=== PATIENT | male | born 1965 | race Caucasian/White ===

== ENCOUNTER 2019-06-27 23:11 | Observation (INO) ==
[2019-06-27] MEDS ORDERED: GLUCAGON 1 MG VIAL IV STA (23:46)
[2019-06-28] MEDS ORDERED: ONDANSETRON 4 MG/2 ML VIAL IV PRN (00:39)
[2019-06-28] MEDS ORDERED: LACTATED RINGERS 1,000 ML IV SCH (01:00)
[2019-06-28] MEDS ORDERED: MORPHINE 4 MG/1 ML VIAL IV PRN (02:14)
[2019-06-28] MEDS ORDERED: propofoL 200 MG/20 ML VIAL IV ONE (02:15)
[2019-06-28] MEDS ORDERED: fentaNYL 100 MCG/2 ML VIAL ONE (02:15)
[2019-06-28] MEDS ORDERED: LIDOCAINE 2% 5 ML VIAL ONE (02:15)
[2019-06-28] MEDS ORDERED: SEVOFLURANE 1 UNIT/15 MINUTE INH ONE (02:15)
[2019-06-28] MEDS ORDERED: ONDANSETRON 4 MG/2 ML VIAL ONE (02:16)
[2019-06-28] MEDS ORDERED: SUCCINYLCHOLINE 200 MG/10 ML VIAL ONE (02:16)
[2019-06-28] MEDS ORDERED: PHENYLEPHRINE 1 MG/10 ML SYRINGE IV ONE (02:16)
[2019-06-28] MEDS ORDERED: DEXAMETHASONE 4 MG/1 ML VIAL ONE (02:16)
[2019-06-28] MEDS ORDERED: ROCURONIUM 100 MG/10 ML VIAL IV ONE (02:16)
[2019-06-28] MEDS ORDERED: ESMOLOL 100 MG/10 ML VIAL IV ONE (02:16)
[2019-06-28] MEDS ORDERED: ETOMIDATE 40 MG/20 ML VIAL IV ONE (02:16)
[2019-06-28 02:26] LABS: Basophils # 0.1 10*3/uL (0.0-0.2); Basophils % 0.7 % (0.0-0.8); Eosinophils # 0.3 10*3/uL (0.0-0.87); Eosinophils % 3.7 % (0.00-10.9); Hemoglobin 15.1 GM/DL (14.0-18.0); Immature Granulocytes % 0.3 %; Immature Granulocytes Absolute 0.02 #; Lymphocytes # 1.1 10*3/uL (1.4-4.0); Lymphocytes % 14.9 % (21.2-54.2); Mean Corpuscular HGB Conc 35.1 GM/DL (32-36); Mean Corpuscular Volume 93.5 FL (87-102); Mean Platelet Volume 9.4 FL (9.6-12.0); Monocytes % 5.2 % (1.7-12.7); Neutrophils % 75.2 % (38.7-73.9); Platelet Count 234 T/CUMM (130-400); Red Cell Distribution Width 11.7 % (9.3-17.3); White Blood Count 7.1 T/CUMM (4-12)
[2019-06-28 02:38] LABS: Albumin 3.7 G/DL (3.4-5.0); Bilirubin,Total 0.5 MG/DL (0.2-1.0); Calcium 9.3 MG/DL (8.5-10.1); Osmolality,Calculated 250.5 MOS/KG (273-304); Total Protein 7.4 G/DL (6.4-8.3)
[2019-06-28] MEDS ORDERED: cefTRIAXone 2,000 MG in SYRINGE 1 EACH IV SCH (03:00)
[2019-06-28] MEDS: PANTOPRAZOLE 40 MG VIAL IV SCH ×2 (03:58→10:14)
[2019-06-28 04:00] LABS: Platelet Estimate Normal
[2019-06-28 11:48] VITALS: BP 119/68
== END 2019-06-28 15:24 | disposition home or self-care (01) ==
LOC: N.5E 23:11 → N.ED 23:11 → N.EDINP 23:11 → N.5E 06-28 00:51
PROVIDERS: ADMIT Internal Medicine Gastroenterology; ATTEND Internal Medicine Gastroenterology